=== PATIENT | female | born 1960 | race Hispanic/Latino ===

== ENCOUNTER 2018-01-02 02:01 | Inpatient (IN) | payer OTHER, MEDICARE ==
[~2018-01-02] VITALS: Ht 152.4 cm; Wt 94.2 kg
[2018-01-02] MEDS ORDERED: SODIUM CHLORIDE 0.9% 1000ML 1,000 ML IV ONE (02:17)
[2018-01-02] MEDS ORDERED: KETOROLAC TROMETHAMINE 30MG/ML ONE ×2 (02:17→08:13)
[2018-01-02 02:21] LABS: BASOPHILS % (AUTO) 0.5 % (0.0-5.0); EOSINOPHILS % (AUTO) 0.7 % (0.0-8.0); HEMATOCRIT 42.1 % (36-48); LYMPHOCYTES % (AUTO) 47.4 % (21.0-51.0); MEAN CORPUSCULAR HEMOGLOBIN 29.3 pg (27.0-33.0); MEAN CORPUSCULAR HGB CONC 32.6 g/dL (32.0-36.0); MEAN CORPUSCULAR VOLUME 89.9 fL (79-99); MONOCYTES % (AUTO) 7.1 % (3.0-13.0); NEUTROPHILS % (AUTO) 44.3 % (40.0-77.0); PLATELET COUNT (AUTO) 308 K/uL (130-400); RED BLOOD CELL COUNT(AUTO) 4.68 MIL/uL (4.00-5.50); RED CELL DISTRIBUTION WIDTH 13.6 % (11.0-15.5); WHITE BLOOD COUNT (AUTO) 15.4 K/uL (4.8-10.8)
[2018-01-02 02:27] LABS: APPEARANCE,URINE Clear (CLEAR); BILIRUBIN,URINE Negative (NEGATIVE); COLOR,URINE Yellow (YELLOW); GLUCOSE, URINE (UA) Negative (NEGATIVE); KETONES,URINE Negative (NEGATIVE); LEUKOCYTE ESTERASE ,URINE Trace (NEGATIVE); NITRATE,URINE Negative (NEGATIVE); OCCULT BLOOD,URINE Negative (NEGATIVE); PH,URINE 6.5 (5.0-8.0); PROTEIN,URINE Negative (NEGATIVE)
[2018-01-02 02:33] LABS: CREATININE 0.8 mg/dL (0.5-1.5); POTASSIUM 3.9 mmol/L (3.5-5.1)
[2018-01-02 02:34] LABS: AMPHET/METH SCREEN,URINE NEGATIVE (NEGATIVE); BARBITURATE SCREEN, URINE NEGATIVE (NEGATIVE); BENZODIAZEPINES SCREEN,URINE NEGATIVE (NEGATIVE); CANNABINOID SCREEN,URINE NEGATIVE (NEGATIVE); COCAINE SCREEN,URINE NEGATIVE (NEGATIVE); OPIATE SCREEN,URINE NEGATIVE (NEGATIVE); PHENCYCLIDINE SCREEN,URINE NEGATIVE (NEGATIVE)
[2018-01-02 02:37] LABS: AMORPHOUS SEDIMENT,UR Rare /LPF (None Seen); BACTERIA,URINE Rare /HPF (None Seen); RBC,URINE None Seen /HPF (0-1); SQUAMOUS EPITHELIAL CELL,UR Rare /HPF (0-2)
[2018-01-02 02:46] LABS: ALBUMIN 3.2 g/dL (3.5-5.0); BILIRUBIN,TOTAL 0.2 mg/dL (0.2-1.0); CREATINE KINASE MB 1.6 ng/mL (0.5-3.6); TOTAL PROTEIN, SERUM 7.8 g/dL (6.0-8.3)
[2018-01-02] MEDS ORDERED: IPRATROPIUM/ALBUTEROL SULFATE 3 ML SOLUTION IH ONE (03:02)
[2018-01-02] MEDS ORDERED: CEFTRIAXONE SODIUM 1 GM ONE (03:07)
[2018-01-02] MEDS ORDERED: LEVOFLOXACIN 500 MG/D5W 100 ML 100 ML ONE (03:07)
[2018-01-02 04:20] VITALS: BP 115/68
[2018-01-02] MEDS ORDERED: BENZ1TAB10 PO (05:50)
[2018-01-02] MEDS ORDERED: BENZ-51 PO (05:50)
[2018-01-02] MEDS ORDERED: TRAZ-187 PO (05:50)
[2018-01-02] MEDS ORDERED: PRAV10TA39 PO (05:50)
[2018-01-02] MEDS ORDERED: BENZONATATE 100 MG CAPSULE PO PRN (06:15)
[2018-01-02 08:00] VITALS: BP 105/59
[2018-01-02] MEDS ORDERED: KETOROLAC TROMETHAMINE 30MG/ML IV SCH (08:15)
[2018-01-02] MEDS ORDERED: SODIUM CHLORIDE 0.9% 1000ML 1,000 ML IV SCH (08:28)
[2018-01-02] MEDS ORDERED: LACTULOSE 20 GM/30 ML UDCUP PO PRN (08:30)
[2018-01-02] MEDS ORDERED: LIDOCAINE HCL-MPF 1% 2ML VIAL IVP PRN (08:30)
[2018-01-02] MEDS ORDERED: POTASSIUM CHLORIDE 20 MEQ ERTAB PO PRN ×2 (08:30)
[2018-01-02] MEDS ORDERED: POTASSIUM CHLORIDE 10% ELIXIR 20 MEQ/15 ML UDCUP PO PRN ×2 (08:30)
[2018-01-02] MEDS ORDERED: CLONIDINE HCL 0.1 MG TABLET PO PRN (08:30)
[2018-01-02] MEDS ORDERED: MAG HYDROX/AL HYDROX/SIMETH ES 30 ML SUSP UDCUP PO PRN (08:30)
[2018-01-02] MEDS ORDERED: POTASSIUM CHLORIDE 20MEQ/100ML 100 ML IV PRN ×2 (08:30)
[2018-01-02] MEDS ORDERED: LIDOCAINE HCL-MPF 1% 2ML VIAL IJ PRN (08:30)
[2018-01-02] MEDS ORDERED: IOPAMIDOL-370 100 ML VIAL IV ONE (08:58)
[2018-01-02] MEDS: IPRATROPIUM/ALBUTEROL SULFATE 3 ML SOLUTION IH SCH ×4 (09:56→21:40)
[2018-01-02] MEDS: INSULIN HUMULIN R 100 UNIT/ML 3ML SQ SCH ×3 (11:30→21:00)
[2018-01-02 11:34] VITALS: BP 128/69
[2018-01-02] MEDS: CEFTRIAXONE SODIUM 1 GM IVP SCH (13:09)
[2018-01-02] MEDS: FAMOTIDINE 20MG TAB 20 MG TAB PO SCH ×2 (13:10→21:03)
[2018-01-02] MEDS: AZITHROMYCIN 500MG+NS 250ML 250 ML IV SCH (13:10)
[2018-01-02 16:00] VITALS: BP 109/85
[2018-01-02] MEDS ORDERED: MORPHINE SULFATE 2 MG/ML 1ML SYG IVP PRN (17:00)
[2018-01-02 20:00] VITALS: BP_SYST 116; BP_SYST 129; BP_DIAS 66; BP_DIAS 68
[2018-01-02] MEDS: BENZTROPINE MESYLATE 0.5 MG TAB PO SCH (21:03)
[2018-01-02] MEDS: ATORVASTATIN CALCIUM 10 MG TABLET PO SCH (21:03)
[2018-01-02] MEDS: TRAZODONE HCL 100 MG TABLET PO SCH (21:03)
[2018-01-02] MEDS: KETOROLAC TROMETHAMINE 15MG/ML IV PRN (21:06)
[2018-01-02 23:46] VITALS: BP 103/60
[2018-01-03] MEDS: IPRATROPIUM/ALBUTEROL SULFATE 3 ML SOLUTION IH SCH ×6 (02:28→22:24)
[2018-01-03] MEDS: MORPHINE SULFATE 4 MG/1ML SYG IV PRN ×2 (02:58→11:06)
[2018-01-03 03:38] VITALS: BP 122/61
[2018-01-03 04:29] LABS: HEMATOCRIT 36.6 % (36-48); MEAN CORPUSCULAR HEMOGLOBIN 29.9 pg (27.0-33.0); MEAN CORPUSCULAR HGB CONC 33.7 g/dL (32.0-36.0); MEAN CORPUSCULAR VOLUME 88.7 fL (79-99); PLATELET COUNT (AUTO) 256 K/uL (130-400); RED BLOOD CELL COUNT(AUTO) 4.13 MIL/uL (4.00-5.50); RED CELL DISTRIBUTION WIDTH 13.7 % (11.0-15.5); WHITE BLOOD COUNT (AUTO) 14.4 K/uL (4.8-10.8)
[2018-01-03 04:40] LABS: CREATININE 0.7 mg/dL (0.5-1.5); POTASSIUM 4.1 mmol/L (3.5-5.1)
[2018-01-03] MEDS: INSULIN HUMULIN R 100 UNIT/ML 3ML SQ SCH ×4 (05:55→21:00)
[2018-01-03 08:00] VITALS: BP 114/52
[2018-01-03] MEDS: CEFTRIAXONE SODIUM 1 GM IVP SCH (10:25)
[2018-01-03] MEDS: FAMOTIDINE 20MG TAB 20 MG TAB PO SCH ×2 (10:25→21:29)
[2018-01-03] MEDS: AZITHROMYCIN 500MG+NS 250ML 250 ML IV SCH (10:25)
[2018-01-03 11:20] VITALS: BP 111/51
[2018-01-03] MEDS: KETOROLAC TROMETHAMINE 15MG/ML IV PRN (15:43)
[2018-01-03 16:00] VITALS: BP 107/55
[2018-01-03 20:00] VITALS: BP 98/62
[2018-01-03] MEDS: ATORVASTATIN CALCIUM 10 MG TABLET PO SCH (21:29)
[2018-01-03] MEDS: TRAZODONE HCL 100 MG TABLET PO SCH (21:29)
[2018-01-03] MEDS: BENZTROPINE MESYLATE 0.5 MG TAB PO SCH (21:29)
[2018-01-04] VITALS: BP 142/76
[2018-01-04] MEDS: IPRATROPIUM/ALBUTEROL SULFATE 3 ML SOLUTION IH SCH ×6 (01:15→23:02)
[2018-01-04] MEDS: KETOROLAC TROMETHAMINE 15MG/ML IV PRN ×2 (02:09→18:49)
[2018-01-04 04:00] VITALS: BP 127/66
[2018-01-04 05:34] LABS: MEAN CORPUSCULAR HEMOGLOBIN 30.3 pg (27.0-33.0); MEAN CORPUSCULAR VOLUME 89.1 fL (79-99); PLATELET COUNT (AUTO) 251 K/uL (130-400); RED BLOOD CELL COUNT(AUTO) 3.94 MIL/uL (4.00-5.50); RED CELL DISTRIBUTION WIDTH 13.5 % (11.0-15.5); WHITE BLOOD COUNT (AUTO) 17.9 K/uL (4.8-10.8)
[2018-01-04 05:42] LABS: BAND NEUTROPHILS % (MANUAL) 4 % (0-2); LYMPHOCYTES % (MANUAL) 11 % (22-44); MAN.DIFF COMMENT-IMPRESSION MANUAL DIFFERENTIAL; MONOCYTES % (MANUAL) 6 % (2-9); PLATELET MORPHOLOGY COMMENT ADEQUATE; SEGMENTED NEUTROPHILS % 79 % (40-70)
[2018-01-04 05:52] LABS: CREATININE 0.8 mg/dL (0.5-1.5); POTASSIUM 4.6 mmol/L (3.5-5.1)
[2018-01-04] MEDS: INSULIN HUMULIN R 100 UNIT/ML 3ML SQ SCH ×4 (07:30→22:15)
[2018-01-04 09:10] VITALS: BP 116/64
[2018-01-04] MEDS: AZITHROMYCIN 500MG+NS 250ML 250 ML IV SCH (09:18)
[2018-01-04] MEDS: CEFTRIAXONE SODIUM 1 GM IVP SCH (09:18)
[2018-01-04] MEDS: FAMOTIDINE 20MG TAB 20 MG TAB PO SCH ×2 (09:18→22:16)
[2018-01-04] MEDS: ENOXAPARIN SODIUM 40 MG/0.4 ML SYRINGE SQ SCH (09:22)
[2018-01-04] MEDS: MORPHINE SULFATE 4 MG/1ML SYG IV PRN (09:32)
[2018-01-04 11:43] VITALS: BP 136/56
[2018-01-04] MEDS: ONDANSETRON HCL MDV 20ML 2 MG/ML VIAL IV PRN ×2 (12:27→20:58)
[2018-01-04 15:33] VITALS: BP 127/89
[2018-01-04 19:00] VITALS: BP 137/76
[2018-01-04] MEDS: ATORVASTATIN CALCIUM 10 MG TABLET PO SCH (22:16)
[2018-01-04] MEDS: BENZTROPINE MESYLATE 0.5 MG TAB PO SCH (22:17)
[2018-01-04] MEDS: TRAZODONE HCL 100 MG TABLET PO SCH (22:17)
[2018-01-04] MEDS: GUAIFENESIN-DM 200/20 MG 10 ML PO PRN (22:21)
[2018-01-05] VITALS (13 sets, daily range): BP systolic 100–141; BP diastolic 61–93
[2018-01-05] MEDS: IPRATROPIUM/ALBUTEROL SULFATE 3 ML SOLUTION IH SCH ×6 (02:25→23:39)
[2018-01-05] MEDS: KETOROLAC TROMETHAMINE 15MG/ML IV PRN (03:50)
[2018-01-05] MEDS: GUAIFENESIN-DM 200/20 MG 10 ML PO PRN ×2 (03:50→22:54)
[2018-01-05] MEDS: INSULIN HUMULIN R 100 UNIT/ML 3ML SQ SCH ×4 (07:30→22:50)
[2018-01-05] MEDS ORDERED: VANCOMYCIN 1GM+NS 250ML 250 ML IV SCH (08:45)
[2018-01-05] MEDS ORDERED: COMPOUND IV REFRIGERATED 1 EACH IVSOLN MISC PRN (08:45)
[2018-01-05] MEDS ORDERED: VANCOMYCIN PROTOCOL PER PHARMACY IV PRN (08:45)
[2018-01-05] MEDS ORDERED: VANCOMYCIN PROTOCOL PER PHARMACY IV SCH (08:45)
[2018-01-05] MEDS: ENOXAPARIN SODIUM 40 MG/0.4 ML SYRINGE SQ SCH (09:00)
[2018-01-05 10:07] LABS: PROTHROMBIN TIME 10.5 SEC (9.6-11.6)
[2018-01-05] MEDS: FAMOTIDINE 20MG TAB 20 MG TAB PO SCH ×2 (11:35→22:38)
[2018-01-05] MEDS: VANCOMYCIN 1.25 GM in SODIUM CHLORIDE 0.9% 250 ML IV SCH ×2 (11:35→22:37)
[2018-01-05] MEDS: AZITHROMYCIN 500MG+NS 250ML 250 ML IV SCH (11:35)
[2018-01-05 16:01] LABS: GLUCOSE,BODY FLUID 100 mg/dL (1-40)
[2018-01-05] MEDS: ZOSYN 3.375GM+NS 50ML 50 ML IV SCH ×2 (16:34→22:37)
[2018-01-05] MEDS ORDERED: ACETYLCYSTEINE 10% 100MG/ML 4ML VIAL ONE (18:19)
[2018-01-05] MEDS ORDERED: IPRATROPIUM/ALBUTEROL SULFATE 3 ML SOLUTION IH ONE (18:19)
[2018-01-05] MEDS ORDERED: LORAZEPAM 0.5 MG TABLET PO ONE (18:30)
[2018-01-05 18:37] LABS: APPEARANCE BODY FLUID SLIGHTLY CLOUDY (CLEAR); COLOR,BODY FLUID YELLOW (LT YELLOW); SPECIMENTYPE,BODY FLUID THORACENTESIS
[2018-01-05 18:38] LABS: BODY FLUID RBC 2364 /cu. mm.; BODY FLUID WBC 463 /cu. mm.; TOTAL VOLUME,BODY FLUID 1200 mL
[2018-01-05] MEDS: ACETYLCYSTEINE 10% 100MG/ML 4ML VIAL IH SCH ×2 (18:56→23:39)
[2018-01-05 20:25] LABS: PH, BODY FLUID 7
[2018-01-05 20:27] LABS: BF LYMPHOCYTE 8 %
[2018-01-05] MEDS: METHYLPREDNISOLONE SOD SUCC 40MG/ML 1ML IVP SCH (22:38)
[2018-01-05] MEDS: BENZTROPINE MESYLATE 0.5 MG TAB PO SCH (22:38)
[2018-01-05] MEDS: ATORVASTATIN CALCIUM 10 MG TABLET PO SCH (22:38)
[2018-01-05] MEDS: TRAZODONE HCL 100 MG TABLET PO SCH (22:38)
[2018-01-05] MEDS ORDERED: LORAZEPAM 0.5 MG TABLET ONE (22:52)
[2018-01-06 03:00] VITALS: BP_SYST 116; BP_SYST 117; BP_DIAS 64; BP_DIAS 74
[2018-01-06 04:36] LABS: HEMATOCRIT 33.7 % (36-48); MEAN CORPUSCULAR HEMOGLOBIN 30.4 pg (27.0-33.0); MEAN CORPUSCULAR VOLUME 89.4 fL (79-99); NUCLEATED RED BLOOD CELLS 0.1 % (0.0-0.19); PLATELET COUNT (AUTO) 306 K/uL (130-400); RED BLOOD CELL COUNT(AUTO) 3.77 MIL/uL (4.00-5.50); RED CELL DISTRIBUTION WIDTH 13.9 % (11.0-15.5); WHITE BLOOD COUNT (AUTO) 12.1 K/uL (4.8-10.8)
[2018-01-06 04:50] LABS: CREATININE 0.6 mg/dL (0.5-1.5); POTASSIUM 4.6 mmol/L (3.5-5.1); TOTAL PROTEIN, SERUM 6.7 g/dL (6.0-8.3)
[2018-01-06] MEDS: METHYLPREDNISOLONE SOD SUCC 40MG/ML 1ML IVP SCH ×3 (05:13→22:14)
[2018-01-06] MEDS: ZOSYN 3.375GM+NS 50ML 50 ML IV SCH ×3 (05:13→22:15)
[2018-01-06] MEDS: INSULIN HUMULIN R 100 UNIT/ML 3ML SQ SCH ×4 (06:00→22:36)
[2018-01-06] MEDS: IPRATROPIUM/ALBUTEROL SULFATE 3 ML SOLUTION IH SCH ×4 (06:43→23:23)
[2018-01-06] MEDS: ACETYLCYSTEINE 10% 100MG/ML 4ML VIAL IH SCH ×4 (06:44→23:23)
[2018-01-06] MEDS ORDERED: LIDOCAINE HCL 1% 20 ML VIAL INJ SCH (07:45)
[2018-01-06 08:00] VITALS: BP 102/49
[2018-01-06] MEDS: AZITHROMYCIN 500MG+NS 250ML 250 ML IV SCH (08:28)
[2018-01-06] MEDS: MORPHINE SULFATE 4 MG/1ML SYG IV PRN (08:28)
[2018-01-06] MEDS: ENOXAPARIN SODIUM 40 MG/0.4 ML SYRINGE SQ SCH (08:28)
[2018-01-06] MEDS: FAMOTIDINE 20MG TAB 20 MG TAB PO SCH ×2 (08:28→22:15)
[2018-01-06] MEDS: VANCOMYCIN 1.25 GM in SODIUM CHLORIDE 0.9% 250 ML IV SCH (10:25)
[2018-01-06 11:33] VITALS: BP 108/63
[2018-01-06 16:00] VITALS: BP 110/52
[2018-01-06 19:35] VITALS: BP 114/63
[2018-01-06] MEDS: ATORVASTATIN CALCIUM 10 MG TABLET PO SCH (22:15)
[2018-01-06] MEDS: TRAZODONE HCL 100 MG TABLET PO SCH (22:15)
[2018-01-06] MEDS: BENZTROPINE MESYLATE 0.5 MG TAB PO SCH (22:15)
[2018-01-06] MEDS: VANCOMYCIN 1GM+NS 250ML 250 ML IV SCH (22:16)
[2018-01-06 23:32] VITALS: BP 98/51
[2018-01-07 04:21] VITALS: BP 99/45
[2018-01-07 04:41] LABS: HEMATOCRIT 33.1 % (36-48); MEAN CORPUSCULAR HEMOGLOBIN 29.9 pg (27.0-33.0); MEAN CORPUSCULAR HGB CONC 33.3 g/dL (32.0-36.0); MEAN CORPUSCULAR VOLUME 89.8 fL (79-99); PLATELET COUNT (AUTO) 324 K/uL (130-400); RED BLOOD CELL COUNT(AUTO) 3.68 MIL/uL (4.00-5.50); RED CELL DISTRIBUTION WIDTH 13.9 % (11.0-15.5); WHITE BLOOD COUNT (AUTO) 13.7 K/uL (4.8-10.8)
[2018-01-07 04:51] LABS: CREATININE 0.7 mg/dL (0.5-1.5); POTASSIUM 4.7 mmol/L (3.5-5.1)
[2018-01-07] MEDS: ACETYLCYSTEINE 10% 100MG/ML 4ML VIAL IH SCH ×4 (06:07→23:00)
[2018-01-07] MEDS: IPRATROPIUM/ALBUTEROL SULFATE 3 ML SOLUTION IH SCH ×4 (06:07→23:00)
[2018-01-07] MEDS: ZOSYN 3.375GM+NS 50ML 50 ML IV SCH ×3 (06:30→21:47)
[2018-01-07] MEDS: METHYLPREDNISOLONE SOD SUCC 40MG/ML 1ML IVP SCH ×3 (06:30→21:47)
[2018-01-07] MEDS: VANCOMYCIN 1GM+NS 250ML 250 ML IV SCH ×3 (06:32→21:48)
[2018-01-07] MEDS: INSULIN HUMULIN R 100 UNIT/ML 3ML SQ SCH ×4 (06:32→22:09)
[2018-01-07 08:00] VITALS: BP 123/58
[2018-01-07] MEDS ORDERED: TRAMADOL HCL 50 MG TABLET PO PRN (08:45)
[2018-01-07] MEDS ORDERED: SIMETHICONE 80 MG TAB.CHEW PO SCH (08:45)
[2018-01-07] MEDS: FAMOTIDINE 20MG TAB 20 MG TAB PO SCH ×2 (09:07→21:47)
[2018-01-07] MEDS: AZITHROMYCIN 500MG+NS 250ML 250 ML IV SCH (09:08)
[2018-01-07] MEDS: MORPHINE SULFATE 4 MG/1ML SYG IV PRN (09:11)
[2018-01-07] MEDS: ENOXAPARIN SODIUM 40 MG/0.4 ML SYRINGE SQ SCH (09:16)
[2018-01-07 12:00] VITALS: BP 112/67
[2018-01-07 16:00] VITALS: BP_SYST 106; BP_SYST 134; BP_DIAS 62; BP_DIAS 69
[2018-01-07 20:00] VITALS: BP 122/58
[2018-01-07] MEDS: TRAZODONE HCL 100 MG TABLET PO SCH (21:47)
[2018-01-07] MEDS: ATORVASTATIN CALCIUM 10 MG TABLET PO SCH (21:47)
[2018-01-07] MEDS: BENZTROPINE MESYLATE 0.5 MG TAB PO SCH (21:47)
[2018-01-08] VITALS (7 sets, daily range): BP systolic 117–134; BP diastolic 60–80
[2018-01-08 04:44] LABS: HEMATOCRIT 32.9 % (36-48); MEAN CORPUSCULAR HGB CONC 33.5 g/dL (32.0-36.0); MEAN CORPUSCULAR VOLUME 89.5 fL (79-99); PLATELET COUNT (AUTO) 343 K/uL (130-400); RED BLOOD CELL COUNT(AUTO) 3.67 MIL/uL (4.00-5.50); RED CELL DISTRIBUTION WIDTH 13.9 % (11.0-15.5); WHITE BLOOD COUNT (AUTO) 11.3 K/uL (4.8-10.8)
[2018-01-08 04:57] LABS: CREATININE 0.7 mg/dL (0.5-1.5); POTASSIUM 4.5 mmol/L (3.5-5.1)
[2018-01-08] MEDS: ZOSYN 3.375GM+NS 50ML 50 ML IV SCH ×3 (05:55→21:55)
[2018-01-08] MEDS: VANCOMYCIN 1GM+NS 250ML 250 ML IV SCH ×3 (05:55→21:56)
[2018-01-08] MEDS: METHYLPREDNISOLONE SOD SUCC 40MG/ML 1ML IVP SCH ×3 (05:56→21:56)
[2018-01-08] MEDS: INSULIN HUMULIN R 100 UNIT/ML 3ML SQ SCH ×4 (06:08→22:11)
[2018-01-08] MEDS: IPRATROPIUM/ALBUTEROL SULFATE 3 ML SOLUTION IH SCH ×4 (06:28→23:10)
[2018-01-08] MEDS: ACETYLCYSTEINE 10% 100MG/ML 4ML VIAL IH SCH ×4 (06:28→23:11)
[2018-01-08] MEDS: FAMOTIDINE 20MG TAB 20 MG TAB PO SCH ×2 (10:02→21:55)
[2018-01-08] MEDS: AZITHROMYCIN 500MG+NS 250ML 250 ML IV SCH (10:02)
[2018-01-08] MEDS: ENOXAPARIN SODIUM 40 MG/0.4 ML SYRINGE SQ SCH (10:11)
[2018-01-08] MEDS: ATORVASTATIN CALCIUM 10 MG TABLET PO SCH (21:55)
[2018-01-08] MEDS: TRAZODONE HCL 100 MG TABLET PO SCH (21:55)
[2018-01-08] MEDS: BENZTROPINE MESYLATE 0.5 MG TAB PO SCH (21:55)
[2018-01-09] VITALS (21 sets, daily range): BP systolic 96–132; BP diastolic 46–86
[2018-01-09 04:36] LABS: HEMATOCRIT 33.8 % (36-48); MEAN CORPUSCULAR HEMOGLOBIN 29.5 pg (27.0-33.0); MEAN CORPUSCULAR HGB CONC 33.1 g/dL (32.0-36.0); MEAN CORPUSCULAR VOLUME 88.9 fL (79-99); PLATELET COUNT (AUTO) 349 K/uL (130-400); RED CELL DISTRIBUTION WIDTH 13.6 % (11.0-15.5)
[2018-01-09 04:42] LABS: INR 1.05 (0.85-1.15)
[2018-01-09 04:56] LABS: CREATININE 0.7 mg/dL (0.5-1.5); POTASSIUM 4.6 mmol/L (3.5-5.1)
[2018-01-09] MEDS: ZOSYN 3.375GM+NS 50ML 50 ML IV SCH ×3 (05:44→20:05)
[2018-01-09] MEDS: VANCOMYCIN 1GM+NS 250ML 250 ML IV SCH ×3 (05:45→22:03)
[2018-01-09] MEDS: ACETYLCYSTEINE 10% 100MG/ML 4ML VIAL IH SCH ×4 (06:22→23:51)
[2018-01-09] MEDS: IPRATROPIUM/ALBUTEROL SULFATE 3 ML SOLUTION IH SCH ×4 (06:22→23:51)
[2018-01-09] MEDS: INSULIN HUMULIN R 100 UNIT/ML 3ML SQ SCH ×4 (06:29→20:18)
[2018-01-09] MEDS: FAMOTIDINE 20MG TAB 20 MG TAB PO SCH ×2 (08:56→20:10)
[2018-01-09] MEDS: ENOXAPARIN SODIUM 40 MG/0.4 ML SYRINGE SQ SCH (08:56)
[2018-01-09] MEDS ORDERED: LIDOCAINE HCL 2% 20ML ONE (09:48)
[2018-01-09] MEDS ORDERED: GLYCOPYRROLATE 0.2 MG/ML 5 ML VIAL ONE (10:02)
[2018-01-09] MEDS ORDERED: PROPOFOL 10 MG/ML 20ML VIAL IV ONE (10:03)
[2018-01-09] MEDS: AZITHROMYCIN 500MG+NS 250ML 250 ML IV SCH (11:15)
[2018-01-09] MEDS: METHYLPREDNISOLONE SOD SUCC 40MG/ML 1ML IVP SCH ×2 (11:15→20:08)
[2018-01-09] MEDS ORDERED: ZIPR40CA24 PO (19:02)
[2018-01-09] MEDS: TRAZODONE HCL 100 MG TABLET PO SCH (20:09)
[2018-01-09] MEDS: BENZTROPINE MESYLATE 0.5 MG TAB PO SCH (20:09)
[2018-01-09] MEDS: ATORVASTATIN CALCIUM 10 MG TABLET PO SCH (20:09)
[2018-01-10 03:00] VITALS: BP 107/58
[2018-01-10] MEDS: ZOSYN 3.375GM+NS 50ML 50 ML IV SCH ×3 (05:16→21:14)
[2018-01-10] MEDS: INSULIN HUMULIN R 100 UNIT/ML 3ML SQ SCH ×4 (06:37→21:25)
[2018-01-10] MEDS: IPRATROPIUM/ALBUTEROL SULFATE 3 ML SOLUTION IH SCH ×3 (06:49→18:01)
[2018-01-10] MEDS: ACETYLCYSTEINE 10% 100MG/ML 4ML VIAL IH SCH ×3 (06:53→18:00)
[2018-01-10 08:18] VITALS: BP 108/69
[2018-01-10] MEDS: AZITHROMYCIN 500MG+NS 250ML 250 ML IV SCH (10:23)
[2018-01-10] MEDS: METHYLPREDNISOLONE SOD SUCC 40MG/ML 1ML IVP SCH ×2 (10:24→21:14)
[2018-01-10] MEDS: FAMOTIDINE 20MG TAB 20 MG TAB PO SCH ×2 (10:24→21:13)
[2018-01-10] MEDS: ENOXAPARIN SODIUM 40 MG/0.4 ML SYRINGE SQ SCH (10:25)
[2018-01-10] MEDS: FUROSEMIDE 10 MG/ML 2ML VIAL IV SCH (10:28)
[2018-01-10 11:29] VITALS: BP 119/63
[2018-01-10] MEDS: VANCOMYCIN 1GM+NS 250ML 250 ML IV SCH ×2 (13:35→21:14)
[2018-01-10 15:49] VITALS: BP 112/40
[2018-01-10 19:00] VITALS: BP 107/75
[2018-01-10] MEDS: ATORVASTATIN CALCIUM 10 MG TABLET PO SCH (21:13)
[2018-01-10] MEDS: TRAZODONE HCL 100 MG TABLET PO SCH (21:13)
[2018-01-10] MEDS: BENZTROPINE MESYLATE 0.5 MG TAB PO SCH (21:13)
[2018-01-10 23:00] VITALS: BP 114/59
[2018-01-11] MEDS: ACETYLCYSTEINE 10% 100MG/ML 4ML VIAL IH SCH ×4 (00:24→19:35)
[2018-01-11] MEDS: IPRATROPIUM/ALBUTEROL SULFATE 3 ML SOLUTION IH SCH ×4 (00:24→19:35)
[2018-01-11] MEDS: MORPHINE SULFATE 4 MG/1ML SYG IV PRN (00:56)
[2018-01-11 03:00] VITALS: BP 94/49
[2018-01-11] MEDS: VANCOMYCIN 1GM+NS 250ML 250 ML IV SCH ×3 (05:08→22:37)
[2018-01-11] MEDS: ZOSYN 3.375GM+NS 50ML 50 ML IV SCH ×3 (05:08→22:36)
[2018-01-11 06:13] LABS: HEMATOCRIT 37.4 % (36-48); MEAN CORPUSCULAR HEMOGLOBIN 29.5 pg (27.0-33.0); MEAN CORPUSCULAR VOLUME 89.5 fL (79-99); PLATELET COUNT (AUTO) 414 K/uL (130-400); RED BLOOD CELL COUNT(AUTO) 4.18 MIL/uL (4.00-5.50); RED CELL DISTRIBUTION WIDTH 13.6 % (11.0-15.5); WHITE BLOOD COUNT (AUTO) 14.2 K/uL (4.8-10.8)
[2018-01-11 06:24] LABS: CREATININE 0.7 mg/dL (0.5-1.5); POTASSIUM 4.4 mmol/L (3.5-5.1)
[2018-01-11] MEDS: INSULIN HUMULIN R 100 UNIT/ML 3ML SQ SCH ×4 (06:33→21:00)
[2018-01-11 08:00] VITALS: BP 110/53
[2018-01-11] MEDS: FUROSEMIDE 10 MG/ML 2ML VIAL IV SCH (08:30)
[2018-01-11] MEDS: FAMOTIDINE 20MG TAB 20 MG TAB PO SCH ×2 (10:05→22:39)
[2018-01-11] MEDS: ENOXAPARIN SODIUM 40 MG/0.4 ML SYRINGE SQ SCH (10:07)
[2018-01-11 11:00] VITALS: BP 115/52
[2018-01-11 16:00] VITALS: BP 95/57
[2018-01-11 20:00] VITALS: BP 106/64
[2018-01-11] MEDS: ATORVASTATIN CALCIUM 10 MG TABLET PO SCH (22:39)
[2018-01-11] MEDS: BENZTROPINE MESYLATE 0.5 MG TAB PO SCH (22:39)
[2018-01-11] MEDS: TRAZODONE HCL 100 MG TABLET PO SCH (22:39)
[2018-01-11 23:22] VITALS: BP 110/60
[2018-01-12] MEDS: IPRATROPIUM/ALBUTEROL SULFATE 3 ML SOLUTION IH SCH ×4 (00:34→18:41)
[2018-01-12] MEDS: ACETYLCYSTEINE 10% 100MG/ML 4ML VIAL IH SCH ×4 (00:34→18:41)
[2018-01-12 03:10] VITALS: BP 112/52
[2018-01-12] MEDS: ZOSYN 3.375GM+NS 50ML 50 ML IV SCH ×3 (05:59→23:17)
[2018-01-12] MEDS: VANCOMYCIN 1GM+NS 250ML 250 ML IV SCH (05:59)
[2018-01-12 06:25] LABS: CREATININE 0.8 mg/dL (0.5-1.5)
[2018-01-12] MEDS: INSULIN HUMULIN R 100 UNIT/ML 3ML SQ SCH ×4 (07:30→21:00)
[2018-01-12 08:00] VITALS: BP 89/48
[2018-01-12] MEDS: FUROSEMIDE 10 MG/ML 2ML VIAL IV SCH (08:30)
[2018-01-12] MEDS: MORPHINE SULFATE 4 MG/1ML SYG IV PRN (11:25)
[2018-01-12 11:33] VITALS: BP 105/58
[2018-01-12] MEDS: ENOXAPARIN SODIUM 40 MG/0.4 ML SYRINGE SQ SCH (12:40)
[2018-01-12] MEDS: FAMOTIDINE 20MG TAB 20 MG TAB PO SCH ×2 (12:40→23:19)
[2018-01-12 16:00] VITALS: BP 95/57
[2018-01-12 20:00] VITALS: BP 120/62
[2018-01-12] MEDS: BENZTROPINE MESYLATE 0.5 MG TAB PO SCH (23:19)
[2018-01-12] MEDS: ATORVASTATIN CALCIUM 10 MG TABLET PO SCH (23:19)
[2018-01-12] MEDS: TRAZODONE HCL 100 MG TABLET PO SCH (23:19)
[2018-01-12] MEDS: GUAIFENESIN-DM 200/20 MG 10 ML PO PRN (23:26)
[2018-01-13] VITALS: BP 116/60
[2018-01-13] MEDS: ACETYLCYSTEINE 10% 100MG/ML 4ML VIAL IH SCH ×3 (00:13→11:35)
[2018-01-13] MEDS: IPRATROPIUM/ALBUTEROL SULFATE 3 ML SOLUTION IH SCH ×3 (00:28→11:35)
[2018-01-13 04:00] VITALS: BP 110/70
[2018-01-13] MEDS: INSULIN HUMULIN R 100 UNIT/ML 3ML SQ SCH ×2 (06:18→11:30)
[2018-01-13] MEDS: ZOSYN 3.375GM+NS 50ML 50 ML IV SCH ×2 (06:18→13:04)
[2018-01-13 08:00] VITALS: BP 88/44
[2018-01-13] MEDS ORDERED: AMOX-426 PO (08:52)
[2018-01-13] MEDS ORDERED: ALBUHFA IH (08:55)
[2018-01-13] MEDS: FAMOTIDINE 20MG TAB 20 MG TAB PO SCH (09:51)
[2018-01-13] MEDS: ENOXAPARIN SODIUM 40 MG/0.4 ML SYRINGE SQ SCH (09:52)
[2018-01-13 12:00] VITALS: BP 106/66
[2018-01-13 16:00] VITALS: BP 102/59
== END 2018-01-13 18:35 | disposition home or self-care (01) | DRG 853 ==
LOC: EDH 02:01 → EDHIP 03:30 → 3BH 03:59
PROVIDERS: ADMIT Family Medicine; ATTEND Family Medicine
PROC: 0W9B30Z Drainage of Left Pleural Cavity with Drainage Device, Percutaneous Approach (ICD-10-PCS; 2018-01-05)
PROC: 0W9B30Z Drainage of Left Pleural Cavity with Drainage Device, Percutaneous Approach (ICD-10-PCS; 2018-01-06)
PROC: 5A09357 Assistance with Respiratory Ventilation, Less than 24 Consecutive Hours, Continuous Positive Airway Pressure (ICD-10-PCS; 2018-01-06)
PROC: 0W9B0ZZ Drainage of Left Pleural Cavity, Open Approach (ICD-10-PCS; 2018-01-06)
PROC: 5A09357 Assistance with Respiratory Ventilation, Less than 24 Consecutive Hours, Continuous Positive Airway Pressure (ICD-10-PCS; 2018-01-07)
PROC: 5A09357 Assistance with Respiratory Ventilation, Less than 24 Consecutive Hours, Continuous Positive Airway Pressure (ICD-10-PCS; 2018-01-08)
PROC: 0B9J8ZX Drainage of Left Lower Lung Lobe, Via Natural or Artificial Opening Endoscopic, Diagnostic (ICD-10-PCS; principal; 2018-01-09)
DX: A41.9 Sepsis, unspecified organism (principal); J18.9 Pneumonia, unspecified organism; J96.01 Acute respiratory failure with hypoxia; J90 Pleural effusion, not elsewhere classified; J98.11 Atelectasis; Z68.41 Body mass index [BMI] 40.0-44.9, adult; F20.9 Schizophrenia, unspecified; F31.9 Bipolar disorder, unspecified; E78.5 Hyperlipidemia, unspecified; E11.9 Type 2 diabetes mellitus without complications; I10 Essential (primary) hypertension; E66.01 Morbid (severe) obesity due to excess calories; G47.33 Obstructive sleep apnea (adult) (pediatric); K59.00 Constipation, unspecified; Z88.8 Allergy status to other drugs, medicaments and biological substances
CPT/HCPCS: 32551; 32555; 36415; 71045; 71275; 74176; 80048; 80053; 80202; 80305; 81001; 82150; 82550; 82553; 82945; 82948; 83605; 83615; 83690; 83986; 84155; 84157; 84484; 85025; 85027; 85610; 85730; 87040; 87071; 87101; 87116; 87186; 87205; 87206; 88104; 88108; 88305; 88312; 89051; 93005; 94640; 94660; 94664; 94667; 94668; 94760; A4218; J0456; J0696; J1650; J1815; J1885; J1940; J1956; J2270; J2543; J2704; J2920; J3370; J3490; J7030; J7608; Q9967

== ENCOUNTER 2018-11-04 08:37 | Emergency (ER) | payer OTHER, MEDICARE ==
[~2018-11-04 08:37] MED LIST: ALBUHFA IH; AMOX-426 PO; BENZ-51 PO; BENZ1TAB10 PO; PRAV10TA39 PO; TRAZ-187 PO; ZIPR40CA24 PO
[2018-11-04 10:26] LABS: BASOPHILS % (AUTO) 0.4 % (0.0-5.0); EOSINOPHILS % (AUTO) 0.2 % (0.0-8.0); HEMATOCRIT 44.3 % (36-48); LYMPHOCYTES % (AUTO) 16.6 % (21.0-51.0); MEAN CORPUSCULAR HEMOGLOBIN 29.2 pg (27.0-33.0); MEAN CORPUSCULAR HGB CONC 33.3 g/dL (32.0-36.0); MEAN CORPUSCULAR VOLUME 87.9 fL (79-99); MONOCYTES % (AUTO) 8.1 % (3.0-13.0); NEUTROPHILS % (AUTO) 74.7 % (40.0-77.0); PLATELET COUNT (AUTO) 258 K/uL (130-400); RED BLOOD CELL COUNT(AUTO) 5.04 MIL/uL (4.00-5.50); RED CELL DISTRIBUTION WIDTH 13.7 % (11.0-15.5); WHITE BLOOD COUNT (AUTO) 9.3 K/uL (4.8-10.8)
[2018-11-04 10:39] LABS: CARBON DIOXIDE 28 mmol/L (21-32); CHLORIDE 101 mmol/L (101-111); CREATININE 0.8 mg/dL (0.5-1.5); GLOMERULAR FILTR. RATE CALC 78 mL/min (>60); GLUCOSE,RANDOM 116 mg/dL (70-105); POTASSIUM 4.5 mmol/L (3.5-5.1); SODIUM SERUM 138 mmol/L (136-145); UREA NITROGEN, BLOOD 15 mg/dL (7-18)
[2018-11-04 10:43] LABS: ALANINE AMINOTRANSFERASE 19 U/L (12-78); ALBUMIN 3.6 g/dL (3.5-5.0); ALCOHOL, BLOOD < 3 mg/dL (0-10); ASPARTATE AMINOTRANSFERASE 24 U/L (10-37); BILIRUBIN,TOTAL 0.6 mg/dL (0.2-1.0)
[2018-11-04 10:56] LABS: ACETAMINOPHEN < 1 mcg/mL (10-30); SALICYLATE < 2.8 mg/dL (2.8-20.0)
[2018-11-04 12:43] LABS: APPEARANCE,URINE Clear (CLEAR); BILIRUBIN,URINE Negative (NEGATIVE); COLOR,URINE Yellow (YELLOW); GLUCOSE, URINE (UA) Negative (NEGATIVE); KETONES,URINE 15 mg/dL (NEGATIVE); LEUKOCYTE ESTERASE ,URINE Trace (NEGATIVE); NITRATE,URINE Negative (NEGATIVE); OCCULT BLOOD,URINE Negative (NEGATIVE); PH,URINE >=9.0 (5.0-8.0); PROTEIN,URINE Negative (NEGATIVE); UROBILINOGEN,URINE 0.2 mg/dL (0.2-1.0)
[2018-11-04 12:49] LABS: AMPHET/METH SCREEN,URINE NEGATIVE (NEGATIVE); BARBITURATE SCREEN, URINE NEGATIVE (NEGATIVE); BENZODIAZEPINES SCREEN,URINE NEGATIVE (NEGATIVE); CANNABINOID SCREEN,URINE NEGATIVE (NEGATIVE); COCAINE SCREEN,URINE NEGATIVE (NEGATIVE); OPIATE SCREEN,URINE NEGATIVE (NEGATIVE); PHENCYCLIDINE SCREEN,URINE NEGATIVE (NEGATIVE)
[2018-11-04 12:56] LABS: BACTERIA,URINE Rare /HPF (None Seen); RBC,URINE 0-1 /HPF (0-1); SQUAMOUS EPITHELIAL CELL,UR Rare /HPF (0-2)
[2018-11-04] MEDS ORDERED: LORAZEPAM 2 MG/ML 1 ML VIAL ONE (15:19)
== END 2018-11-04 17:56 | disposition home or self-care (01) ==
LOC: EDH 08:37
DX: F31.9 Bipolar disorder, unspecified (principal); F41.9 Anxiety disorder, unspecified; E78.5 Hyperlipidemia, unspecified; Z91.14 Patient's other noncompliance with medication regimen; Z88.8 Allergy status to other drugs, medicaments and biological substances; Z90.49 Acquired absence of other specified parts of digestive tract; Z98.890 Other specified postprocedural states
CPT/HCPCS: 36415; 80053; 80305; 81001; 85025; 93005; 96372; 99284; G0480 ×2; G0481; J2060